=== PATIENT | female | born 1960 | race African-American/Black ===

== ENCOUNTER 2023-08-30 23:23 | Emergency (ER) | payer OTHER, SELFPAY ==
[2023-08-30 23:26] VITALS: BP 98/58; PULSE 81; RESP 16; TEMP 36.8; O2SAT 100; BMI 26.5
--- NOTE | 2023-08-30 23:33 | ECG_ITS ---
Test Reason : WEAKNESS Blood Pressure : / mmHG Vent. Rate : 077 BPM Atrial Rate : 077 BPM P-R Int : 176 ms QRS Dur : 088 ms QT Int : 360 ms P-R-T Axes : 059 019 051 degrees QTc Int : 407 ms Normal sinus rhythm Possible Left atrial enlargement Left ventricular hypertrophy ( R in aVL , Jose product ) Nonspecific T wave abnormality Abnormal ECG No previous ECGs available Referred By: Vanessa Junior Electronically Signed By:RAHEEM GARCIA
--- NOTE | 2023-08-30 23:41 | ED_ITS ---
HPI - Nausea/Vomiting/Diarrhea General Chief complaint: Nausea/Vomiting/Diarrhea Stated complaint: Vomiting Time Seen by Provider: 08/30/23 23:26 Source: patient Mode of arrival: ambulatory Limitations: no limitations History of Present Illness HPI Narrative: Patient comes to the emergency room complaining of 1 episode of vomiting, 1 diarrhea, diaphoresis and feeling weak. Patient states that all of her symptoms started last night. Today, patient went to work, and when she was working she had an episode of diaphoresis, no chest pain or shortness of breath. At this time, nauseous, not diaphoretic. Denies abdominal pain Related Data Allergies Allergy/AdvReac Type Severity Reaction Status Date / Time No Known Allergies Allergy Verified 08/30/23 23:29 Review of Systems 2 Review of Systems: Constitutional : No Weight loss, No Fever, No Chills, No Night Sweats, No Fatigue, No Malaise complaining of 1 episode of diaphoresis ENT/Mouth : No Hearing loss, No Ear Pain, No Nasal Congestion, No Sinus Pain, No Hoarseness, No sore throat, No Rhinorrhea, No Swallowing Difficulty Eyes: No Eye Pain, No Swelling, No Redness, No Foreign Body, No Discharge, No Vision Changes Cardiovascular : No Chest Pain, No SOB, No Dyspnea on Exertion, No Orthopnea, No Edema, No Palpitations Respiratory : No Cough, No Sputum, No Wheezing, No Smoke Exposure, No Dyspnea Gastrointestinal : Complaining of nausea, 1 episode of vomiting and diarrhea. No Constipation, No abdominal Pain, No Hematochezia, No Melena Genitourinary : no irregular bleeding, No Dysuria, No Urinary Frequency, No Hematuria, No Urinary Incontinence, No Urgency, No Flank Pain, No Urinary Flow Changes, No Hesitancy Musculoskeletal : No joint pain, No Myalgias, No Joint Swelling Skin : No Skin Lesions, No rash Neuro : No Weakness, No Numbness, No Paresthesias, No Loss of Consciousness, No Dizziness, No Headache Psych : No Anxiety/Panic, No Depression, No SI/HI/AH/VH, No Social Issues, Heme/Lymph: No Bruising, No Bleeding,No Lymphadenopathy Endocrine : No Polyuria, No Polydipsia, No Temperature Intolerance PMFSH Past Medical History Medical History (Updated 08/31/23 @ 03:21 by Vanessa Junior MD) Hypertension Social History Social History Smoked in Last 30 Days: No Use of substances other than those prescribed or required for medical reasons: No Advance Directives: No Advance Directives Information Provided: Yes Do you have a plan to hurt others: No Plan Patient : No Physical Exam 2 Vital Signs: Vital Signs: Last Vital Signs Temp 98.7 F 08/31/23 01:25 Pulse 77 08/31/23 02:29 Resp 18 08/31/23 02:29 BP 106/54 L 08/31/23 02:29 Pulse Ox 99 08/31/23 02:29 O2 Del Method Room Air 08/31/23 02:29 BMI result Body Mass Index 26.5 Const: Other: Appearance: Alert. Oriented X3. No acute distress. Eyes: Pupils equal, round and reactive to light. ENT: Pharynx normal. Neck: Normal inspection. Neck supple. No lymph nodes noted. No crepitus CVS: Normal heart rate and rhythm. Pulses normal. Normal S1 and S2 Respiratory: No respiratory distress. Breath sounds normal. No Wheezing. No rales Abdomen: Soft and nontender. No rigidity. No distention. Skin: Skin warm and dry. Normal skin color. Normal skin turgor. Extremities: No lower extremity edema. No Lacerations. No Rash Neuro: Oriented X 3. No motor deficit. No sensory deficit. Moving all extremities. No slurred speech. CN 2 through 12 grossly intact Psych: calm, cooperative, normal affect Course Course Course Narrative: -all of patient's labs pending Medications Administered Discontinued Medications Generic Name Dose Route Start Last Admin Trade Name Freq PRN Reason Stop Dose Admin Sodium Chloride 1,000 mls @ 999 mls/hr 08/30/23 23:33 08/31/23 02:00 Ns IVCONT 08/31/23 00:33 Infused .Q1H1M ONE Infusion Sodium Chloride 1,000 mls @ 999 mls/hr 08/31/23 00:25 08/31/23 02:45 Ns IVCONT 08/31/23 01:25 Infused .Q1H1M ONE Infusion Loperamide HCl 4 mg 08/30/23 23:33 08/31/23 00:01 Loperamide Hcl 2 Mg Capsule PO 08/30/23 23:34 4 mg ONCE ONE Administration Ondansetron HCl 4 mg 08/30/23 23:33 08/31/23 00:01 Ondansetron Hcl 4 Mg/2 Ml Vial IVPUSH 08/30/23 23:34 4 mg ONCE ONE Administration Medical Decision Making Medical Decision Making [facility] Narrative: -my interpretation of EKG: Normal sinus rhythm, heart rate 77 T 90 degrees segment depression or elevation, no T-wave inversion, QTC 407 -my interpretation of labs: Patient's hemoglobin 11.4. Chemistry shows a creatinine of 2.16. According to the patient, she has never been told that she has any kidney issues. Serology positive for COVID-19 -patient receiving IV fluids. After 2 L we will repeat a chemistry level. If creatinine does not improve, patient will likely need to be admitted. -patient states that she is being worked up for multiple myeloma but she has not been diagnosed yet. -after 2 L of IV fluids, patient's creatinine improved but still elevated, creatinine 1.6. I discussed with the patient that I recommend admission. I discussed with the patient that she may need more fluids and also renal ultrasound to find out what is causing the elevation in creatinine. Patient declined, patient states that she has vacation coming up and she prefers to follow-up with her primary care physician. Differential Diagnosis Differential Diagnoses: The differential diagnosis associated with the presentation includes (COVID, influenza, acute versus chronic kidney injury, dehydration) Admission/Observation Consideration of admission/observation: Escalation of care including admission/observation considered (Admission was considered and recommended, patient declined) Lab Data [facility] Lab Attestation statement: I reviewed the patient's lab results. 08/30/23 23:49 08/31/23 02:47 Labs: Lab Results 08/30/23 08/30/23 08/31/23 Range/Units 23:48 23:49 02:47 WBC 9.6 (4.8-10.8) X10*3/uL RBC 3.86 L (4.20-5.50) X10*6/uL Hgb 11.4 L (12.0-16.0) g/dl Hct 33.2 L (37.0-47.0) % MCV 86.0 (80.0-98.0) fL MCH 29.5 (27.0-33.0) pg MCHC 34.3 (31.0-35.0) g/dl RDW 14.0 (11.0-16.0) % Plt Count 438 H (160-400) X10*3/uL MPV 9.6 (9.4-12.3) fL Immature Gran % (Auto) 0.5 H (0.0-0.4) % Neut % (Auto) 73.3 H (45-73) % Lymph % (Auto) 18.3 L (20-40) % [place] % (Auto) 5.0 (2-11) % Eos % (Auto) 2.7 (0-4) % Baso % (Auto) 0.2 (0-2) % Lymph # (Auto) 1.8 (1.2-4.9) X10*3/uL [place] # (Auto) 0.5 (0.1-1.2) X10*3/uL Eos # (Auto) 0.3 (0.0-0.4) X10*3/uL Baso # (Auto) 0.0 (0.0-0.2) X10*3/uL Abs Immat Gran (auto) 0.05 H (0.00-0.03) X10*3/uL Absolute Neuts (auto) 7.1 (2.0-8.3) x10*3/uL Absolute Nucleated RBC 0.000 (0.0-0.012) X10*3/uL Nucleated RBC % (auto) 0.0 (0.0-0.2) /100WBC Sodium 136 139 (135-145) mmol/L Potassium 4.1 3.6 (3.3-5.1) mmol/L Chloride 100 106 (96-108) mmol/L Carbon Dioxide 22 22 (22-29) mmol/L Anion Gap 18 15 (12-20) BUN 29 H 27 H (9-16) mg/dL Creatinine 2.16 H 1.76 H (0.5-1.4) mg/dL Estim Creat Clear Calc 28.2 34.6 Estimated GFR 23 29 Random Glucose 144 H 119 H (60-115) mg/dL Calcium 10.0 9.0 D (8.4-10.2) mg/dL Total Bilirubin 0.6 (0.0-1.0) mg/dL Direct Bilirubin 0.2 (0.0-0.5) mg/dL AST 21 (5-31) U/L ALT 18 (0-31) U/L Alkaline Phosphatase 69 (39-117) U/L Troponin I High Sens 3.3 (<3.5-17.0) ng/L Total Protein 8.8 H (6.5-8.0) g/dL Albumin 4.0 (3.5-5.0) g/dL Lipase 38 (8-78) U/L COVID-19 (KANE) Positive A (Negative) COVID-19 Clin Com See Note Influenza Type A (KAREL) Negative (Negative) Influenza Type B (KAREL) Negative (Negative) Influenza A & B Note See Note Critical Care Time Critical Care Time Critical Care Time: Yes Total Critical Care Time: 75 Attestation: I have personally provided critical care time. Time includes review of lab data, radiology results, discussion with consultants, and monitoring for potential decompensation. Intervention performed as documented. Discharge Plan Discharge Clinical Impression: Acute kidney injury, COVID-19 Patient Disposition: Left Against Medical Advice Instructions: Acute Kidney Injury (DC), COVID-19 (Coronavirus Disease 2019) (ED) Additional Instructions: Please follow-up with your primary care physician tomorrow. If you have any worsening or new symptoms, please return to the emergency room or call 911 Print Language: Citizen [place]
[2023-08-30 23:53] LABS: MANUAL DIFF FLAG NO
[2023-08-30 23:54] LABS: Basophils Percent Auto 0.2 % (0-2); Eosinophils Absolute Auto 0.3 X10*3/uL (0.0-0.4); Eosinophils Percent Auto 2.7 % (0-4); Hematocrit 33.2 % (37.0-47.0); Hemoglobin 11.4 g/dl (12.0-16.0); Imm Gran Abs Auto 0.05 X10*3/uL (0.00-0.03); Imm Gran Pct Auto 0.5 % (0.0-0.4); Lymphocytes Absolute Auto 1.8 X10*3/uL (1.2-4.9); Lymphocytes Percent Auto 18.3 % (20-40); Mean Corpuscular HGB Conc 34.3 g/dl (31.0-35.0); Mean Corpuscular Hemoglobin 29.5 pg (27.0-33.0); Mean Platelet Volume 9.6 fL (9.4-12.3); Monocytes Absolute Auto 0.5 X10*3/uL (0.1-1.2); Neutrophils Absolute Auto 7.1 x10*3/uL (2.0-8.3); Neutrophils Percent Auto 73.3 % (45-73); Platelet Count 438 X10*3/uL (160-400); Red Blood Count 3.86 X10*6/uL (4.20-5.50); White Blood Count 9.6 X10*3/uL (4.8-10.8)
[2023-08-31] MEDS: 0.9 % Sodium Chloride 1,000 ML 999 ML IVCONT ×2 (00:01→01:31)
[2023-08-31] MEDS: ondansetron HCL 4 MG/2 ML VIAL IVPUSH (00:01)
[2023-08-31] MEDS: Loperamide HCl 2 MG CAPSULE 4 MG PO (00:01)
[2023-08-31 00:14] LABS: Alanine Aminotransferase 18 U/L (0-31); Alkaline Phosphatase 69 U/L (39-117); Anion Gap 18 (12-20); Aspartate Amino Transferase 21 U/L (5-31); Bilirubin Direct 0.2 mg/dL (0.0-0.5); Bilirubin Total 0.6 mg/dL (0.0-1.0); Blood Urea Nitrogen 29 mg/dL (9-16); Carbon Dioxide 22 mmol/L (22-29); Chloride 100 mmol/L (96-108); Creatinine Clr Calc Pharmacy 28.2; Estimated Glomerular Filt Rate 23; Glucose Random 144 mg/dL (60-115); Lipase 38 U/L (8-78); Potassium 4.1 mmol/L (3.3-5.1); Sodium 136 mmol/L (135-145); Total Protein 8.8 g/dL (6.5-8.0)
[2023-08-31 00:18] LABS: Troponin-I High Sensitivity 3.3 ng/L (<3.5-17.0)
[2023-08-31 00:31] LABS: IDNOW Serial# 08D9AD1C; Influenza A Negative (Negative); Influenza B2 Negative (Negative)
[2023-08-31 00:31] LABS: COVID-19 Test Positive (Negative); IDNOW Serial# 152EDE1D
[2023-08-31 01:25] VITALS: BP 113/60; PULSE 74; RESP 14; TEMP 37.1; O2SAT 100
--- NOTE | 2023-08-31 01:34 | PC.NURSE ---
Patient presents o ED for evaluation of 1 episode of vomiting, diarrhea, diaphoresis and feeling weak-onset of symptoms last night. EKG completed, 22 G IV line established in right wrist, labs drawn and sent to lab for processing. Patient medicated per JUN, bolus of 1 L NS infusing w/o issues, call mancini placed within patient' reach. Plan of care ongoing.
[2023-08-31 02:29] VITALS: BP 106/54; PULSE 77; RESP 18; O2SAT 99
--- NOTE | 2023-08-31 02:50 | PC.NURSE ---
IV fluids infused, repeat BMP drawn. Patient denies any pain. She is resting in a stretcher bed with her eyes closed, respirations unlabored, even chest wall raise and fall. VSS, not in distress. Call mancini in reach.
[2023-08-31 03:10] LABS: Anion Gap 15 (12-20); Blood Urea Nitrogen 27 mg/dL (9-16); Carbon Dioxide 22 mmol/L (22-29); Chloride 106 mmol/L (96-108); Creatinine Clr Calc Pharmacy 34.6; Estimated Glomerular Filt Rate 29; Glucose Random 119 mg/dL (60-115); Potassium 3.6 mmol/L (3.3-5.1); Sodium 139 mmol/L (135-145)
[2023-08-31 03:44] VITALS: BP 116/63; PULSE 82; RESP 16; TEMP 36.7; O2SAT 98
[2023-08-31 03:49] VITALS: BP 116/63; PULSE 82; RESP 16; TEMP 36.7; O2SAT 98
== END 2023-08-31 03:50 | disposition left against medical advice (07) ==
PROVIDERS: Emergency Provider Emergency Medicine
DX: U07.1 COVID-19 (principal); N17.9 Acute kidney failure, unspecified; R11.2 Nausea with vomiting, unspecified; R19.7 Diarrhea, unspecified; I10 Essential (primary) hypertension
CPT/HCPCS: 36415; 80048; 80076; 83690; 84484; 85025; 87502; 87635; 93005; 96361; 96374; 99284; 99285; J2405

== ENCOUNTER → 2023-08-30 23:33 | Outpatient (BNV) | payer OTHER, SELFPAY | PROVIDERS: Emergency Provider Emergency Medicine; Visit Provider Internal Medicine | DX: R94.31 Abnormal electrocardiogram [ECG] [EKG] (principal) | CPT/HCPCS: 93010 ==